=== PATIENT | male | born 1955 | race Caucasian/White ===

== ENCOUNTER 2023-07-25 06:36 | Day surgery (SDC) | payer BC, SELFPAY ==
[2023-07-25] VITALS (11 sets, daily range): BP systolic 132–171; BP diastolic 73–90; BMI 32.1
[2023-07-25] MEDS: NSS 279 ML IV (06:59)
[2023-07-25] MEDS: LOW STRENGTH ASPIRIN 81 MG PO (07:00)
[2023-07-25 07:04] LABS: % Basophils 0.3 % (0-2); % Eosinophils 0.4 % (0-6); % Lymphocytes 30.8 % (20.5-51.1); % Monocytes 11.2 % (1.7-9.3); % Neutrophils 56.3 % (42.2-75.2); Absolute Eosinophils 0.1 10^3/uL (0-0.7); Absolute Immature Granulocytes 0.1 10^3/uL (0-0.05); Absolute Lymphocytes 4.1 10^3/uL (1.2-3.4); Absolute Monocytes 1.5 10^3/uL (0.1-0.6); Absolute Neutrophils 7.6 10^3/uL (1.4-6.5); Mean Corpuscular Hgb 30.6 pg (27.0-31.0); Mean Corpuscular Volume 87.5 fL (80.0-94.0); Mean Platelet Volume 9.1 fL (7.4-10.4); Nucleated Red Blood Cells % 0 % (-); Platelet Count 259 10^3/uL (130-400); Red Blood Cell Count 4.57 10^6/uL (4.70-6.10); Red Cell Dist. Width 13.2 % (11.5-14.5); White Blood Cell Count 13.4 10^3/uL (4.8-10.8)
[2023-07-25 07:23] LABS: Blood Urea Nitrogen 26 mg/dl (9-20); Calcium 9.1 mg/dl (8.4-10.2); Carbon Dioxide 21 mmol/L (22-30); Chloride 108 mmol/L (98-107); Estimated Creatinine Clearance 78 ml/min; Glucose 104 mg/dl (70-99); Potassium 4.6 mmol/L (3.5-5.1); Sodium 136 mmol/L (135-145); eGFR > 60.00
--- NOTE | 2023-07-25 07:53 | ITS.CL.CATH ---
[employer] - Catheterization
Cardiac Catheterization
Procedure Report:
LEFT HEART CATHETERIZATION
Date of Procedure: July 25, 2023
Procedures performed:
1: Coronary angiography
2: Left ventricular hemodynamic assessment
Primary Care Physician: Dr. Susanna Beatty
Primary Ribbon Hanking Machine Operator: Dr. Blaise Kang
INDICATION: The patient is a 68-year-old man with a past medical history of smoking and hypertension who presents with increasing dyspnea on exertion. Nuclear perfusion scan was intermediate risk with possible inferolateral ischemia. He notes no
typical angina and reports only intermittent exertional dyspnea. He also thinks he is feeling better on medical therapy.
ACCESS: The patient was prepped and draped in usual sterile fashion. A 6 Nepali sheath was placed in the right radial artery using the Seldinger over the wire technique.
HEMODYNAMIC FINDINGS (mmHg):
LV(s/d,EDP): 145/11, 18
Ao(s/d,m): 145/84, 108
ANGIOGRAPHIC FINDINGS:
Single-plane Left Ventriculography in BOGGS Projection: Not done. Normal LV systolic function by recent echo
Coronary Angiography:
Dominance: Left
Left Main: The left main has fairly heavy ostial and moderate diffuse calcification in the body of the vessel. Despite this there is no focal obstructive disease with only mild diffuse luminal irregularity.
Left Anterior Descending: The left anterior descending artery is moderately calcified and medium caliber with nonobstructive luminal irregularities and normal distal flow. The LAD gives rise to 1 major medium caliber diagonal branch that is patent
with mild luminal irregularities.
Ramus intermedius: Medium caliber ramus intermedius branch present with mild luminal irregularities.
Left Circumflex: The left circumflex is a relatively large caliber dominant vessel that gives rise to a medium caliber first obtuse marginal branch, a medium caliber branching left-sided posterior left ventricular branch and a medium caliber
left-sided posterior descending artery. The proximal and mid circumflex is mildly calcified as is the takeoff of OM1. There is a smooth 60% stenosis involving the takeoff of the first obtuse marginal branch. The distal circumflex vessels are
widely patent with normal flow. The first obtuse marginal branch has some degree of mild to moderate ostial disease with normal distal flow.
Right Coronary: Small nondominant vessel. 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
Fluoroscopy Time (min): 1.9
Radiation Dose (mGy): 410
DAP (Gy.cm2): 25
Closure device: None. A TR band was applied for hemostasis at the right wrist.
Complications: None.
ASSESSMENT:
1: Single-vessel coronary artery disease. This is not clearly obstructive and given the equivocal nuclear and clinical findings I feel should be treated medically.
2: Normal left ventricular filling pressures
CONCLUSIONS and RECOMMENDATIONS:
1: Medical therapy and clinical follow-up for coronary artery disease.
Adam Johnson M.D.
Copy to: Dr. Susanna Beatty
== END 2023-07-25 10:45 | disposition home or self-care (01) ==
LOC: CATH 06:36
PROVIDERS: ATTENDING PHYSICIAN Internal Medicine Interventional Cardiology; PRIMARYCARE PHYSICIAN Family Medicine; REFERRING PHYSICIAN Internal Medicine Cardiovascular Disease
DX: I25.10 Atherosclerotic heart disease of native coronary artery without angina pectoris (principal); R06.09 Other forms of dyspnea; I10 Essential (primary) hypertension; Z87.891 Personal history of nicotine dependence; I25.84 Coronary atherosclerosis due to calcified coronary lesion
CPT/HCPCS: 80048; 85025; 93458; C1894; Q9967